=== PATIENT | female | born 1940 | race Caucasian/White ===

== ENCOUNTER 2017-09-26 15:46 | Outpatient (CLI) | payer OTHER ==
[~2017-09-26 15:46] MED LIST: CALCICARB650 MG PO; HYZAAR 100-121 UDTAB; HYZAAR 100-121 UDTAB PO; LOSARTAN-HCTZ1 EAC2 PO; PROTONIX40 MG PO; REMERON15 MG PO; SYNTHROID125 MCG PO; ZANTAC300 MG PO; ZOFRAN4 MG PO
== END 2017-09-26 19:00 | disposition home or self-care (01) ==
LOC: RAD 15:46
DX: S52.502A Unspecified fracture of the lower end of left radius, initial encounter for closed fracture (principal)

== ENCOUNTER 2017-10-29 14:46 | Outpatient (CLI) | payer OTHER | END 2017-10-29 14:55 | disposition home or self-care (01) | LOC: MRI 14:46 | DX: R42 Dizziness and giddiness (principal); R41.2 Retrograde amnesia | CPT/HCPCS: 70551 ==

== ENCOUNTER 2017-10-29 15:45 | Outpatient (CLI) | payer OTHER | END 2017-10-29 15:54 | disposition home or self-care (01) | LOC: RAD 15:45 | DX: M15.0 Primary generalized (osteo)arthritis (principal) ==

== ENCOUNTER 2017-12-01 10:48 | Outpatient (CLI) | payer OTHER | END 2017-12-01 15:26 | disposition home or self-care (01) | LOC: RAD 10:48 | DX: S52.502D Unspecified fracture of the lower end of left radius, subsequent encounter for closed fracture with routine healing (principal) ==

== ENCOUNTER 2018-03-26 06:13 | Day surgery (SDC) | payer OTHER | END 2018-03-26 10:10 | disposition home or self-care (01) | LOC: AMB-ENDOS 06:13 | DX: K29.50 Unspecified chronic gastritis without bleeding (principal); K31.89 Other diseases of stomach and duodenum; K20.0 Eosinophilic esophagitis; K21.9 Gastro-esophageal reflux disease without esophagitis; K29.00 Acute gastritis without bleeding ==

== ENCOUNTER 2018-03-26 10:43 | Outpatient (CLI) | payer OTHER | END 2018-03-26 16:12 | disposition home or self-care (01) | LOC: TOM 10:43 | DX: K56.600 Partial intestinal obstruction, unspecified as to cause (principal); Z12.11 Encounter for screening for malignant neoplasm of colon ==

== ENCOUNTER 2019-05-04 04:50 | Emergency (ER) | payer OTHER ==
[~2019-05-04] VITALS: Ht 152.4 cm; Wt 68.0 kg
[2019-05-04] MEDS ORDERED: FORTAMET500 MG (05:17)
[2019-05-04] MEDS ORDERED: SYNTHROID137 MCG (05:17)
[2019-05-04] MEDS ORDERED: [UNRECOGNIZED DRUG - OTHER] (05:18)
[2019-05-04] MEDS ORDERED: ELIQUIS5 MG (05:24)
== END 2019-05-04 13:14 | disposition home or self-care (01) ==
LOC: ER 04:50
DX: M54.5 Low back pain (principal); M79.604 Pain in right leg

== ENCOUNTER 2023-08-23 21:49 | Emergency (ER) | payer OTHER ==
[~2023-08-23] VITALS: Ht 152.4 cm; Wt 62.6 kg
[~2023-08-23 21:49] MED LIST changes: +ELIQUIS5 MG; +FORTAMET500 MG; +SYNTHROID137 MCG; +[UNRECOGNIZED DRUG - OTHER]
[2023-08-23] MEDS ORDERED: SYNTHROID112 MCG (22:10)
[2023-08-23] MEDS ORDERED: ROSUVASTATIN CA10 MG (22:11)
[2023-08-23] MEDS ORDERED: PREVALITE PACKET4 GM (22:11)
[2023-08-23] MEDS ORDERED: OMEPRAZOLE20 M1 (22:11)
[2023-08-23] MEDS ORDERED: FOLIC ACID20 MG (22:11)
== END 2023-08-24 01:50 | disposition home or self-care (01) ==
LOC: ER 21:49
DX: L30.8 Other specified dermatitis (principal); Z88.8 Allergy status to other drugs, medicaments and biological substances; E11.9 Type 2 diabetes mellitus without complications; Z79.84 Long term (current) use of oral hypoglycemic drugs; I10 Essential (primary) hypertension

== ENCOUNTER 2023-08-29 07:14 | Outpatient (CLI) | payer OTHER ==
[~2023-08-29 07:14] MED LIST changes: +FOLIC ACID20 MG; +OMEPRAZOLE20 M1; +PREVALITE PACKET4 GM; +ROSUVASTATIN CA10 MG; +SYNTHROID112 MCG
== END 2023-08-29 07:16 | disposition home or self-care (01) ==
LOC: NUCLEAR 07:14
DX: I20.0 Unstable angina (principal)
CPT/HCPCS: 78452; 93017; A9500; J0153

== ENCOUNTER 2023-10-15 12:54 | Outpatient (CLI) | payer OTHER | END 2023-10-15 12:55 | disposition home or self-care (01) | LOC: RAD 12:54 | PROVIDERS: ATTEND Physical Medicine & Rehabilitation | DX: M25.562 Pain in left knee (principal); M54.2 Cervicalgia; M54.50 Low back pain, unspecified; M54.6 Pain in thoracic spine ==

== ENCOUNTER 2024-03-23 07:36 | Outpatient (CLI) | payer OTHER | END 2024-03-23 07:48 | disposition home or self-care (01) | LOC: TOM 07:36 | PROVIDERS: ATTEND Otolaryngology | DX: R10.12 Left upper quadrant pain (principal) | CPT/HCPCS: 74178; Q9965 ==

== ENCOUNTER 2024-05-01 20:25 | Emergency (ER) | payer OTHER ==
[~2024-05-01] VITALS: Ht 162.6 cm; Wt 63.5 kg
[2024-05-01] MEDS ORDERED: 0.9 % SODIUM CHLORIDE 1,000 ML IV ONE (21:15)
[2024-05-01 21:52] LABS: HEMATOCRIT 35.1 % (36.0-45.00); HEMOGLOBIN 11.6 g/dL (12.0-15.00); MEAN CELL VOLUME 84.5 fL (80.00-100.00); MEAN CORPUSCULAR HGB CONC 33.1 g/dl (32.0-36.0); PLATELET COUNT 306 K/uL (150-450); RED BLOOD COUNT 4.15 M/uL (4.00-6.00); RED CELL DISTRIBUTION WIDTH 15.2 % (11.5-14.5)
[2024-05-01 22:06] LABS: INR 1.11; PARTIAL THROMBOPLASTIN TIME 29.8 SECONDS (22.0-34.0); PROTHROMBIN TIME 11.6 SECONDS (9.0-11.5)
[2024-05-01 22:19] LABS: ALBUMIN 3.2 gm/dL (3.4-5.0); BILIRUBIN TOTAL 0.29 mg/dL (0.3-1.2); CALCIUM 8.6 mg/dL (8.5-10.1); CREATININE SERUM 1.45 mg/dL (0.55-1.02); GFR 34.57; GLOBULINA 3.3 G/DL (2.4-3.5); POTASSIUM 3.49 mEq/L (3.5-5.1); TOTAL PROTEIN 6.5 gm/dL (6.4-8.2); TSH 1.75 uIU/mL (0.358-3.74)
[2024-05-01 22:28] LABS: URINE APPEARANCE Clear; URINE BILIRRUBIN Negative (NEGATIVE); URINE BLOOD Negative; URINE COLOR Yellow; URINE GLUCOSE Negative (NEGATIVE); URINE KETONE Trace (NEGATIVE); URINE LEUKOCYTE Trace; URINE NITRATE Negative; URINE PROTEIN Negative (NEGATIVE); URINE UROBILINOGEN 0.2 E.U./dl
[2024-05-01 22:32] LABS: URINE BACTERIA 49.1 uL (0.0-1933); URINE CAST 7.17 uL (0.0-1.40); URINE EPITHELIAL CELLS 30.7 uL (0.0-38.8); URINE RBC 7.1 uL (0.0-20.8); URINE WBC 24.8 uL (0.0-23.2)
== END 2024-05-02 01:06 | disposition home or self-care (01) ==
LOC: ER 20:25
PROVIDERS: General Practice
DX: I95.9 Hypotension, unspecified (principal); R53.1 Weakness; Z88.2 Allergy status to sulfonamides; I48.91 Unspecified atrial fibrillation; I10 Essential (primary) hypertension; G47.33 Obstructive sleep apnea (adult) (pediatric); E03.8 Other specified hypothyroidism; K58.8 Other irritable bowel syndrome; Z91.040 Latex allergy status; E11.9 Type 2 diabetes mellitus without complications; Z79.84 Long term (current) use of oral hypoglycemic drugs; E78.00 Pure hypercholesterolemia, unspecified
CPT/HCPCS: 36415; 70450; 71045; 93005; 96365; 96366; 99284; J7030

== ENCOUNTER → 2024-08-09 | Outpatient (CLI) | payer OTHER | END | disposition home or self-care (01) | LOC: RAD 13:52 | DX: M99.01 Segmental and somatic dysfunction of cervical region (principal); M54.2 Cervicalgia; M99.02 Segmental and somatic dysfunction of thoracic region; M54.6 Pain in thoracic spine; M99.03 Segmental and somatic dysfunction of lumbar region; M54.59 Other low back pain ==

== ENCOUNTER 2024-10-10 02:10 | Inpatient (IN) | payer OTHER ==
[~2024-10-10] VITALS: Ht 152.4 cm; Wt 142.0 kg
[2024-10-10] MEDS ORDERED: FAMOTIDINE/PF 20 MG in 0.9 % SODIUM CHLORIDE 8 ML IV PUSH STA (03:26)
[2024-10-10] MEDS ORDERED: 0.9 % SODIUM CHLORIDE 1,000 ML IV SCH (03:30)
[2024-10-10] MEDS ORDERED: KETOROLAC TROMETHAMINE 30 MG VIAL IV ONE (03:30)
[2024-10-10] MEDS ORDERED: ONDANSETRON HCL 2 MG/ML VIAL IV ONE (03:30)
[2024-10-10] MEDS ORDERED: ONDANSETRON HCL 2 MG/ML VIAL ONE ×2 (03:49→08:18)
[2024-10-10] MEDS ORDERED: FAMOTIDINE/PF 20 MG/2 ML VIAL ONE ×2 (03:49→08:18)
[2024-10-10] MEDS ORDERED: KETOROLAC TROMETHAMINE 30 MG VIAL ONE ×2 (03:50→08:17)
[2024-10-10 04:51] LABS: ALBUMIN 3.1 gm/dL (3.4-5.0); BILIRUBIN TOTAL 0.38 mg/dL (0.3-1.2); CALCIUM 8.5 mg/dL (8.5-10.1); CREATININE SERUM 0.99 mg/dL (0.55-1.02); GFR 53.57; GLOBULINA 3.4 G/DL (2.4-3.5); POTASSIUM 4.16 mEq/L (3.5-5.1); TOTAL PROTEIN 6.5 gm/dL (6.4-8.2)
[2024-10-10 05:41] LABS: HEMATOCRIT 36.3 % (36.0-45.00); MEAN CELL VOLUME 87.2 fL (80.00-100.00); MEAN CORPUSCULAR HEMOGLOBIN 28.8 pg (27.00-32.0); PLATELET COUNT 335 K/uL (150-450); RED BLOOD COUNT 4.17 M/uL (4.00-6.00); RED CELL DISTRIBUTION WIDTH 14.4 % (11.5-14.5)
[2024-10-10] MEDS ORDERED: LIDOCAINE HCL VISCOUS 20MG/ML BLIST 15ML MM ONE (09:04)
[2024-10-10] MEDS ORDERED: PANTOPRAZOLE SODIUM 40 MG/VIAL VIAL IV SCH (15:33)
[2024-10-10] MEDS ORDERED: ONDANSETRON HCL 4 MG in DEXTROSE 5 % IN WATER 50 ML IV PRN (16:00)
[2024-10-10] MEDS ORDERED: ENOXAPARIN SODIUM 80 MG/0.8 ML SYRINGE SUBCUTANEO ONE (16:25)
[2024-10-10] MEDS ORDERED: ENOXAPARIN SODIUM 60 MG/0.6 ML SYRINGE SUBCUTANEO SCH (17:00)
[2024-10-10] MEDS ORDERED: ENOXAPARIN SODIUM 80 MG/0.8 ML SYRINGE SUBCUTANEO SCH (17:00)
[2024-10-10] MEDS ORDERED: ENALAPRILAT DIHYDRATE 1.25 MG/ML VIAL IV SCH (18:00)
[2024-10-10] MEDS ORDERED: DEXTROSE 50 % IN WATER 0.5 G/ML DISP.SYRIN IV PRN (19:15)
[2024-10-10] MEDS ORDERED: INSULIN LISPRO 1,000 UNIT/10 ML UNITS SUBCUTANEO PRN (19:15)
[2024-10-10] MEDS ORDERED: METOCLOPRAMIDE HCL 5 MG/ML VIAL ONE (20:06)
[2024-10-10 20:44] VITALS: BP 134/82
[2024-10-10] MEDS ORDERED: METOCLOPRAMIDE HCL 5 MG/ML VIAL IV SCH (21:00)
[2024-10-10 21:02] LABS: INR 1.09; PARTIAL THROMBOPLASTIN TIME 35.9 SECONDS (22.0-34.0); PROTHROMBIN TIME 11.8 SECONDS (9.0-11.5)
[2024-10-10 21:40] LABS: PH,URINE 5.5 (5.0-8.0); URINE APPEARANCE Clear; URINE BILIRRUBIN Negative (NEGATIVE); URINE BLOOD Small; URINE COLOR Yellow; URINE GLUCOSE Negative (NEGATIVE); URINE KETONE Trace (NEGATIVE); URINE LEUKOCYTE Small; URINE NITRATE Positive; URINE PROTEIN Negative (NEGATIVE); URINE UROBILINOGEN 0.2 E.U./dl
[2024-10-10 21:43] LABS: URINE EPITHELIAL CELLS 12.6 uL (0.0-38.8); URINE RBC 10.9 uL (0.0-20.8); URINE WBC 68.1 uL (0.0-23.2)
[2024-10-10 22:00] LABS: URINE BACTERIA > 9821.5 uL (0.0-1933); URINE CAST 0.29 uL (0.0-1.40)
[2024-10-11 02:10] VITALS: BP 134/74
[2024-10-11] MEDS ORDERED: LEVOTHYROXINE SODIUM 112 MCG TABLET PO SCH (06:00)
[2024-10-11 07:35] VITALS: BP 132/82; O2SAT 97
[2024-10-11] MEDS ORDERED: METOPROLOL SUCCINATE 50 MG TAB.SR.24H PO SCH (09:00)
[2024-10-11 16:00] VITALS: BP 147/73; O2SAT 95
[2024-10-12 00:49] VITALS: BP 143/60; O2SAT 99
[2024-10-12 08:00] VITALS: BP 164/74; O2SAT 98
== END 2024-10-12 16:52 | disposition home or self-care (01) | DRG 390 ==
LOC: ER 02:10 → SURH 19:53
PROVIDERS: General Practice; ADMIT Internal Medicine; ATTEND Internal Medicine
PROC: BW21ZZZ Computerized Tomography (CT Scan) of Abdomen and Pelvis (ICD-10-PCS; principal; 2024-10-10)
PROC: 0DH68UZ Insertion of Feeding Device into Stomach, Via Natural or Artificial Opening Endoscopic (ICD-10-PCS; 2024-10-10)
DX: K56.690 Other partial intestinal obstruction (principal); I48.91 Unspecified atrial fibrillation; K20.80 Other esophagitis without bleeding; R53.1 Weakness

== ENCOUNTER 2024-12-26 02:26 | Emergency (ER) | payer OTHER ==
[~2024-12-26] VITALS: Ht 152.4 cm; Wt 63.5 kg
[2024-12-26] MEDS ORDERED: SYMBICORT 16010.2 GM IH (02:42)
[2024-12-26] MEDS ORDERED: METOPROLOL SUCC50 MG PO (02:42)
[2024-12-26] MEDS ORDERED: LOSARTAN POTAS100 MG PO (02:42)
[2024-12-26] MEDS ORDERED: MAGNESIUM SULFATE IN WATER 4 GM/100 ML PIGGYBACK IV STA (04:03)
[2024-12-26] MEDS ORDERED: HYDROCODONE/CHLORPHEN P-STIREX 5 ML ML PO STA (04:04)
[2024-12-26] MEDS ORDERED: MAGNESIUM SULFATE 50% 1,000 MG/2 ML VIAL ONE (04:25)
[2024-12-26 04:27] LABS: ABG PO2 89.4 mmHg (80-100); ABG pCO2 30.2 mmHg (35-45); BASE EXCESS -0.3 mmol/l; SaO2 97.5 %
[2024-12-26 04:31] LABS: HEMATOCRIT 38.6 % (36.0-45.00); HEMOGLOBIN 12.8 g/dL (12.0-15.00); MEAN CELL VOLUME 84.3 fL (80.00-100.00); MEAN CORPUSCULAR HEMOGLOBIN 28.1 pg (27.00-32.0); MEAN CORPUSCULAR HGB CONC 33.3 g/dl (32.0-36.0); PLATELET COUNT 329 K/uL (150-450); RED BLOOD COUNT 4.57 M/uL (4.00-6.00); RED CELL DISTRIBUTION WIDTH 15.1 % (11.5-14.5)
[2024-12-26 04:44] LABS: allen test SATISFACTORY; o2 21 %; puncture site RADIAL RIGHT
[2024-12-26 04:54] LABS: CALCIUM 9.3 mg/dL (8.5-10.1); CREATININE SERUM 0.78 mg/dL (0.55-1.02); GFR 70.53; POTASSIUM 3.69 mEq/L (3.5-5.1)
[2024-12-26] MEDS ORDERED: IPRATROPIUM/ALBUTEROL SULFATE 3 ML AMPUL.NEB IH SCH (05:00)
== END 2024-12-26 05:56 | disposition home or self-care (01) ==
LOC: ER 02:27
DX: J06.9 Acute upper respiratory infection, unspecified (principal); J45.901 Unspecified asthma with (acute) exacerbation; Z20.822 Contact with and (suspected) exposure to COVID-19; I10 Essential (primary) hypertension; Z88.8 Allergy status to other drugs, medicaments and biological substances
CPT/HCPCS: 36415; 71045; 82803; 94640; 96365; 99284; J3475

== ENCOUNTER 2025-02-03 13:14 | Outpatient (CLI) | payer OTHER ==
[~2025-02-03 13:14] MED LIST changes: +LOSARTAN POTAS100 MG PO; +METOPROLOL SUCC50 MG PO; +SYMBICORT 16010.2 GM IH
== END 2025-02-03 13:16 | disposition home or self-care (01) ==
LOC: SONOGRAMA 13:14
PROVIDERS: ATTEND Internal Medicine Cardiovascular Disease
DX: M19.90 Unspecified osteoarthritis, unspecified site (principal)

== ENCOUNTER → 2025-03-30 07:30 | Outpatient (CLI) | payer OTHER | END | disposition home or self-care (01) | LOC: NUCLEAR 07:30 | PROVIDERS: ATTEND Internal Medicine Cardiovascular Disease | DX: I82.409 Acute embolism and thrombosis of unspecified deep veins of unspecified lower extremity (principal); I87.2 Venous insufficiency (chronic) (peripheral) ==

== ENCOUNTER 2025-06-28 11:19 | Inpatient (IN) | payer OTHER ==
[~2025-06-28] VITALS: Ht 152.4 cm; Wt 63.5 kg
[2025-06-28] MEDS ORDERED: LEVOTHYROXINE112 MCG (11:27)
[2025-06-28] MEDS ORDERED: PREDNISOLO15 MG/5 M1 (11:27)
--- NOTE | 2025-06-28 11:28 | NUR ---
SE RECIBE PACIENTE ALERTA Y ORIENTADA X3 QUIEN REFIERE DOLOR ABDOMINAL. SE MIDEN S/V Y SE UBICA EN BILL CON BARANDAS ELEVADAS Y NIVEL MAS BAJO DE LA BILL
[2025-06-28] MEDS ORDERED: 0.9 % SODIUM CHLORIDE 1,000 ML IV STA (13:11)
[2025-06-28] MEDS ORDERED: ONDANSETRON HCL 2 MG/ML VIAL IV ONE (13:15)
[2025-06-28] MEDS ORDERED: FAMOTIDINE/PF 20 MG in 0.9 % SODIUM CHLORIDE 100 ML IV ONE (13:15)
[2025-06-28] MEDS ORDERED: METRONIDAZOLE/SODIUM CHLORIDE 500 MG/100 ML PIGGYBACK IV ONE ×2 (13:15→14:12)
[2025-06-28] MEDS ORDERED: MORPHINE SULFATE 2 MG/ML SYRINGE IV ONE (13:15)
[2025-06-28] MEDS ORDERED: CIPROFLOXACIN IN 5 % DEXTROSE 200 ML IV ONE (13:15)
[2025-06-28] MEDS ORDERED: ONDANSETRON HCL 2 MG/ML VIAL ONE (14:12)
[2025-06-28] MEDS ORDERED: CIPROFLOXACIN IN 5 % DEXTROSE 400 MG/200 ML PIGGYBAG IV ONE (14:12)
[2025-06-28] MEDS ORDERED: FAMOTIDINE/PF 20 MG/2 ML VIAL ONE (14:13)
[2025-06-28] MEDS ORDERED: BARIUM SULFATE 450 ML ORAL.SUSP PO ONE (14:13)
--- NOTE | 2025-06-28 14:33 | NUR ---
SE ORIENTA PTE SOBRE TX MEDICO Y LA MISMA REFIERE ENTENDER Y ACEPTAR. SE CANALIZA Y SE COLECTAN MUESTRAS DE LAB, SE ADMINISTRAN MEDS MONICA ORDEN MEDICA. SE HACE ENTREGA DE ENVASE PARA UA Y SE HACE ENTREGA DE CONTRASTES PARA CT PO.
[2025-06-28 14:41] LABS: ERYTHROCYTE SEDIMENTATION RATE 46 mm/hr (0-30)
[2025-06-28 14:46] LABS: ALT/SGPT 18.0 U/L (12-78); AST/SGOT 14.0 U/L (15-37); BILIRUBIN TOTAL 0.28 mg/dL (0.3-1.2); BILIRUBIN,CONJUGATED 0.11 mg/dL (0.0-0.2); BUN CREA RATIO 27.0 (7.0-25.0); CREATININE SERUM 1.08 mg/dL (0.55-1.02); GFR 48.45; GLUCOSE FASTING 117.0 mg/dL (65-100); OSMOLALITY SERUM 286.0 MOSM/KG (275-295)
[2025-06-28 14:50] LABS: URINE APPEARANCE Clear; URINE BILIRRUBIN Negative (NEGATIVE); URINE BLOOD Negative; URINE COLOR Yellow; URINE GLUCOSE Negative (NEGATIVE); URINE KETONE Negative (NEGATIVE); URINE LEUKOCYTE Negative; URINE NITRATE Negative; URINE PROTEIN Negative (NEGATIVE); URINE UROBILINOGEN 0.2 E.U./dl
[2025-06-28 14:54] LABS: URINE BACTERIA 8.3 uL (0.0-1933); URINE EPITHELIAL CELLS 7.6 uL (0.0-38.8); URINE RBC 5.5 uL (0.0-20.8); URINE WBC 2.3 uL (0.0-23.2)
[2025-06-28 15:01] LABS: URINE CAST 1.02 uL (0.0-1.40)
[2025-06-28] MEDS ORDERED: DIPHENHYDRAMINE HCL 50 MG/ML VIAL 1ML ONE (15:01)
[2025-06-28] MEDS ORDERED: METHYLPREDNISOLONE SOD SUCC 125 MG VIAL ONE (15:01)
[2025-06-28 15:07] LABS: INR 1.08
--- NOTE | 2025-06-28 15:10 | NUR ---
AL MOMENTO DE ADMINISTRAR FLAGYL PACIENTE PRESENTA REACCION ADVERSA, SE LUIS SV Y SE NOTIFICA AKHIL.CHEEMA. SE COLOCA BENADRYL 50 MG IV Y SOLUMEDROL 125MG IV, PTE ESTABLE , SE DOCUMENTAN VITALES.
[2025-06-28] MEDS ORDERED: DIPHENHYDRAMINE HCL 50 MG/ML VIAL 1ML IV ONE (15:15)
[2025-06-28] MEDS ORDERED: METHYLPREDNISOLONE SOD SUCC 125 MG VIAL IV ONE (15:15)
[2025-06-28 16:08] LABS: BASO % 0.2 % (0.1-1.2); EOS # 0.42 (0.04-0.54); EOS % 3.3 % (0.7-7.0); LYMPH # 2.19 (1.18-3.74); LYMPH % 17.1 % (19.3-53.1); MEAN PLATELET VOLUME 9.80 fl (9.4-12.4); MONO # 1.02 (0.24-0.82); MONO % 8.0 % (4.7-12.5); NEUT # 9.00 (1.56-6.13); NEUT % 70.1 % (34.0-71.1); RED CELL DISTRIBUTION WIDTH 15.7 % (11.6-14.4)
[2025-06-28] MEDS ORDERED: CIPROFLOXACIN IN 5 % DEXTROSE 200 ML IV SCH (22:10)
[2025-06-28] MEDS ORDERED: PANTOPRAZOLE SODIUM 40 MG in 0.9 % SODIUM CHLORIDE 8 ML IV PUSH SCH (22:12)
[2025-06-28] MEDS ORDERED: LOSARTAN/HYDROCHLOROTHIAZIDE 1 TAB TABLET PO SCH (22:13)
[2025-06-28] MEDS ORDERED: 0.9 % SODIUM CHLORIDE 1,000 ML IV SCH (22:15)
[2025-06-28] MEDS ORDERED: MORPHINE SULFATE 2 MG/ML SYRINGE IV PRN (22:15)
[2025-06-28] MEDS ORDERED: ENOXAPARIN SODIUM 40 MG/0.4 ML SYRINGE SUBCUTANEO SCH (22:17)
[2025-06-28] MEDS ORDERED: INSULIN LISPRO 1,000 UNIT/10 ML UNITS SUBCUTANEO PRN (22:30)
[2025-06-28] MEDS ORDERED: DEXTROSE 50 % IN WATER 0.5 G/ML DISP.SYRIN IV PRN (22:30)
[2025-06-28] MEDS ORDERED: METOPROLOL TARTRATE 100 MG TABLET PO SCH (22:37)
[2025-06-28] MEDS ORDERED: ATORVASTATIN CALCIUM 20 MG TABLET PO SCH (22:38)
[2025-06-29 02:02] LABS: ALT/SGPT 17.0 U/L (12-78); AST/SGOT 13.0 U/L (15-37); BILIRUBIN TOTAL 0.33 mg/dL (0.3-1.2); BUN CREA RATIO 26.0 (7.0-25.0); CREATININE SERUM 0.92 mg/dL (0.55-1.02); GFR 58.3; GLOBULINA 3.7 G/DL (2.4-3.5); GLUCOSE FASTING 154.0 mg/dL (65-100); OSMOLALITY SERUM 285.0 MOSM/KG (275-295)
[2025-06-29 02:40] VITALS: BP 115/69; O2SAT 99
[2025-06-29] MEDS ORDERED: LEVOTHYROXINE SODIUM 112 MCG TABLET PO SCH (06:00)
[2025-06-29 07:40] VITALS: BP 133/74
[2025-06-29] MEDS ORDERED: INSULIN LISPRO 1,000 UNIT/10 ML UNITS SUBCUTANEO PRN (14:15)
[2025-06-29] MEDS ORDERED: ENALAPRILAT DIHYDRATE 1.25 MG/ML VIAL IV PRN (14:15)
[2025-06-29] MEDS ORDERED: DEXTROSE 50 % IN WATER 0.5 G/ML DISP.SYRIN IV PRN (14:15)
[2025-06-29 16:30] VITALS: BP 118/77; O2SAT 99
[2025-06-29] MEDS ORDERED: MEROPENEM 500 MG/VIAL VIAL IV SCH (17:00)
[2025-06-29] MEDS ORDERED: LACTOBACILLUS ACIDOPHILUS 1 CAP CAP PO SCH (17:00)
[2025-06-29] MEDS ORDERED: DEXTROSE 5 %-0.45 % SOD CHLORD 1,000 ML IV SCH (17:30)
[2025-06-29] MEDS ORDERED: FAMOTIDINE/PF 20 MG/2 ML VIAL IV SCH (21:00)
[2025-06-29 23:35] VITALS: BP 112/68; O2SAT 98
[2025-06-30] MEDS ORDERED: MELATONIN 5 MG TABLET PO SCH (00:45)
[2025-06-30] MEDS ORDERED: LEVOTHYROXINE SODIUM 125 MCG TABLET PO SCH (06:00)
[2025-06-30 07:28] LABS: BASO % 0.3 % (0.1-1.2); EOS # 0.12 (0.04-0.54); EOS % 0.9 % (0.7-7.0); LYMPH # 2.88 (1.18-3.74); LYMPH % 21.2 % (19.3-53.1); MEAN PLATELET VOLUME 9.60 fl (9.4-12.4); MONO # 1.06 (0.24-0.82); MONO % 7.8 % (4.7-12.5); NEUT # 9.25 (1.56-6.13); NEUT % 68.3 % (34.0-71.1); RED CELL DISTRIBUTION WIDTH 15.3 % (11.6-14.4)
[2025-06-30 08:00] VITALS: BP 114/69; O2SAT 99
[2025-06-30 08:25] LABS: ALT/SGPT 19.0 U/L (12-78); AST/SGOT 16.0 U/L (15-37); BILIRUBIN TOTAL 0.29 mg/dL (0.3-1.2); BUN CREA RATIO 24.0 (7.0-25.0); CREATININE SERUM 0.89 mg/dL (0.55-1.02); GFR 60.57; GLOBULINA 2.8 G/DL (2.4-3.5); GLUCOSE FASTING 114.0 mg/dL (65-100); OSMOLALITY SERUM 291.0 MOSM/KG (275-295); T4 TOTAL 9.88 UG/DL (4.8-13.9)
[2025-06-30 08:30] LABS: TSH 0.336 uIU/mL (0.358-3.74)
[2025-06-30] MEDS ORDERED: LOSARTAN POTASSIUM 100 MG TABLET PO SCH (09:00)
[2025-06-30] MEDS ORDERED: METOPROLOL SUCCINATE 100 MG TAB.SR.24H PO SCH (09:00)
[2025-06-30] MEDS ORDERED: Cyanocobalamin/Mecobalamin 1 TAB.SL SL SCH (10:36)
[2025-06-30] MEDS ORDERED: SOD FERRIC GLUC COMPLX/SUCROSE 62.5 MG in 0.9 % SODIUM CHLORIDE 50 ML IV SCH (10:36)
[2025-06-30 12:12] LABS: ob POSITIVE (NEGATIVE)
[2025-06-30] MEDS ORDERED: MAGNESIUM SULFATE IN WATER 50 ML IV NR (15:30)
[2025-06-30] MEDS ORDERED: ROSUVASTATIN CALCIUM 10 MG TABLET PO SCH (17:00)
[2025-06-30 18:18] VITALS: BP 138/80; O2SAT 98
[2025-06-30] MEDS ORDERED: ENOXAPARIN SODIUM 60 MG/0.6 ML SYRINGE SUBCUTANEO SCH (21:00)
[2025-06-30 21:02] LABS: URINE APPEARANCE Clear; URINE BILIRRUBIN Negative (NEGATIVE); URINE BLOOD Negative; URINE COLOR Yellow; URINE GLUCOSE Negative (NEGATIVE); URINE KETONE Negative (NEGATIVE); URINE LEUKOCYTE Negative; URINE NITRATE Negative; URINE PROTEIN Negative (NEGATIVE); URINE UROBILINOGEN 0.2 E.U./dl
[2025-06-30 21:07] LABS: URINE EPITHELIAL CELLS 1.8 uL (0.0-38.8); URINE WBC 2.6 uL (0.0-23.2)
[2025-06-30 21:15] LABS: URINE BACTERIA 2.3 uL (0.0-1933); URINE CAST 0.73 uL (0.0-1.40); URINE RBC 0.4 uL (0.0-20.8)
[2025-07-01] MEDS ORDERED: MEROPENEM 500 MG/VIAL VIAL IV SCH
[2025-07-01 02:48] VITALS: BP 105/67; O2SAT 97
[2025-07-01] MEDS ORDERED: LEVOTHYROXINE SODIUM 112 MCG TABLET PO SCH (06:00)
[2025-07-01 08:40] VITALS: BP 143/83; O2SAT 98
[2025-07-01 15:51] VITALS: BP 135/72; O2SAT 100
[2025-07-02 00:58] VITALS: BP 110/72; O2SAT 99
[2025-07-02] MEDS ORDERED: PANTOPRAZOLE SODIUM 40 MG/VIAL VIAL ONE (05:15)
[2025-07-02] MEDS ORDERED: LEVOTHYROXINE SODIUM 125 MCG TABLET PO SCH (06:00)
[2025-07-02] MEDS ORDERED: PANTOPRAZOLE SODIUM 40 MG in 0.9 % SODIUM CHLORIDE 8 ML IV PUSH SCH (06:00)
[2025-07-02 07:37] LABS: BASO % 0.6 % (0.1-1.2); EOS # 0.34 (0.04-0.54); EOS % 4.3 % (0.7-7.0); LYMPH # 3.08 (1.18-3.74); LYMPH % 39.2 % (19.3-53.1); MEAN PLATELET VOLUME 9.40 fl (9.4-12.4); MONO # 0.72 (0.24-0.82); MONO % 9.2 % (4.7-12.5); NEUT # 3.46 (1.56-6.13); NEUT % 44.2 % (34.0-71.1); RED CELL DISTRIBUTION WIDTH 15.3 % (11.6-14.4)
[2025-07-02 07:46] LABS: ERYTHROCYTE SEDIMENTATION RATE 9 mm/hr (0-30)
[2025-07-02 08:00] VITALS: BP 129/79; O2SAT 100
[2025-07-02 08:13] LABS: ALT/SGPT 17.0 U/L (12-78); AST/SGOT 16.0 U/L (15-37); BILIRUBIN TOTAL 0.22 mg/dL (0.3-1.2); BUN CREA RATIO 7.0 (7.0-25.0); CREATININE SERUM 0.81 mg/dL (0.55-1.02); GFR 67.53; GLOBULINA 2.8 G/DL (2.4-3.5); GLUCOSE FASTING 91.0 mg/dL (65-100); OSMOLALITY SERUM 288.0 MOSM/KG (275-295)
[2025-07-02] MEDS ORDERED: MAGNESIUM SULFATE IN WATER 50 ML IV NR (12:00)
[2025-07-02] MEDS ORDERED: POTASSIUM PHOS,M-BASIC-D-BASIC 15 MM in 0.9 % SODIUM CHLORIDE 250 ML IV ONE (13:00)
[2025-07-02 16:00] VITALS: BP 152/73; O2SAT 98
[2025-07-03 00:18] VITALS: BP 141/73; O2SAT 98
[2025-07-03 07:53] VITALS: BP 126/56; O2SAT 95
[2025-07-03 16:59] VITALS: BP 166/80; O2SAT 99
[2025-07-03 19:15] VITALS: O2SAT 84
[2025-07-04 00:50] VITALS: BP 136/84; O2SAT 99
[2025-07-04 07:12] LABS: BASO % 0.6 % (0.1-1.2); EOS # 0.47 (0.04-0.54); EOS % 5.0 % (0.7-7.0); LYMPH # 2.95 (1.18-3.74); LYMPH % 31.1 % (19.3-53.1); MEAN PLATELET VOLUME 9.50 fl (9.4-12.4); MONO # 0.77 (0.24-0.82); MONO % 8.1 % (4.7-12.5); NEUT # 4.89 (1.56-6.13); NEUT % 51.6 % (34.0-71.1); RED CELL DISTRIBUTION WIDTH 15.6 % (11.6-14.4)
[2025-07-04 07:38] LABS: BUN CREA RATIO 8.0 (7.0-25.0); CREATININE SERUM 0.86 mg/dL (0.55-1.02); GFR 63.02; GLUCOSE FASTING 89.0 mg/dL (65-100); OSMOLALITY SERUM 286.0 MOSM/KG (275-295)
[2025-07-04 08:00] VITALS: BP 137/75; O2SAT 97
[2025-07-04] MEDS ORDERED: DIATRIZOATE MEGLUMINE, SODIUM 30 ML BOTTLE PO NR (08:00)
[2025-07-04] MEDS ORDERED: POTASSIUM PHOS,M-BASIC-D-BASIC 18 MM in 0.9 % SODIUM CHLORIDE 250 ML IV NR (13:00)
[2025-07-04 16:00] VITALS: BP 149/71; O2SAT 100
[2025-07-04] MEDS ORDERED: ONDANSETRON HCL 2 MG/ML VIAL IV STA (22:22)
[2025-07-04] MEDS ORDERED: FAMOTIDINE/PF 20 MG/2 ML VIAL IV STA (22:24)
[2025-07-05 06:26] LABS: BASO % 0.9 % (0.1-1.2); EOS # 0.49 (0.04-0.54); EOS % 5.6 % (0.7-7.0); LYMPH # 2.83 (1.18-3.74); LYMPH % 32.1 % (19.3-53.1); MEAN PLATELET VOLUME 9.50 fl (9.4-12.4); MONO # 0.74 (0.24-0.82); MONO % 8.4 % (4.7-12.5); NEUT # 4.32 (1.56-6.13); NEUT % 48.9 % (34.0-71.1); RED CELL DISTRIBUTION WIDTH 15.8 % (11.6-14.4)
[2025-07-05 07:20] LABS: EOSINOPHIL MAN 2.0 %; LYMPHOCYTE MAN 45.0 %; MONOCYTE MAN 11.0 %; NEUTROPHILS MAN 40.0 %
[2025-07-05] MEDS ORDERED: ONDANSETRON HCL 2 MG/ML VIAL IV SCH (09:00)
[2025-07-05] MEDS ORDERED: ZINC OXIDE TOP SCH (09:00)
[2025-07-05] MEDS ORDERED: FAMOTIDINE/PF 20 MG/2 ML VIAL IV SCH (09:00)
[2025-07-05] MEDS ORDERED: NYSTATIN TOP SCH (09:00)
[2025-07-05 09:47] VITALS: BP 143/80; O2SAT 98
[2025-07-05] MEDS ORDERED: SUCRALFATE 1 G TABLET PO NR (11:00)
[2025-07-05] MEDS ORDERED: KETOROLAC TROMETHAMINE 30 MG VIAL IV SCH (13:00)
[2025-07-05] MEDS ORDERED: ZINC OXIDE 30 GM,NYSTATIN 30 GM TOP SCH (13:00)
[2025-07-05 16:00] VITALS: BP 114/95; O2SAT 98
[2025-07-05] MEDS ORDERED: SUCRALFATE 1 G TABLET PO SCH (17:00)
[2025-07-05] MEDS ORDERED: APIXABAN 5 MG TABLET PO SCH (21:00)
[2025-07-06 00:28] VITALS: BP 137/82; O2SAT 98
[2025-07-06 07:45] VITALS: BP 134/64; O2SAT 100
[2025-07-06] MEDS ORDERED: ABANEU-SL TABL1 EACH SL (12:12)
[2025-07-06] MEDS ORDERED: FUSION PLUS CA1 EACH PO (12:12)
== END 2025-07-06 12:04 | disposition home or self-care (01) | DRG 392 ==
LOC: ER 11:19 → SURG 23:18
PROVIDERS: General Practice; Internal Medicine Geriatric Medicine; Internal Medicine Infectious Disease; Surgery; ADMIT Surgery; ATTEND Surgery
PROC: BW21ZZZ Computerized Tomography (CT Scan) of Abdomen and Pelvis (ICD-10-PCS; principal; 2025-06-28)
PROC: B246ZZZ Ultrasonography of Right and Left Heart (ICD-10-PCS; 2025-06-29)
PROC: 02HV33Z Insertion of Infusion Device into Superior Vena Cava, Percutaneous Approach (ICD-10-PCS; 2025-06-29)
PROC: 4A12X4Z Monitoring of Cardiac Electrical Activity, External Approach (ICD-10-PCS; 2025-06-29)
PROC: BW21ZZZ Computerized Tomography (CT Scan) of Abdomen and Pelvis (ICD-10-PCS; 2025-07-04)
DX: K57.32 Diverticulitis of large intestine without perforation or abscess without bleeding (principal); I50.30 Unspecified diastolic (congestive) heart failure; I47.10 Supraventricular tachycardia, unspecified; K63.89 Other specified diseases of intestine; I48.91 Unspecified atrial fibrillation; I11.0 Hypertensive heart disease with heart failure; E11.9 Type 2 diabetes mellitus without complications; E03.8 Other specified hypothyroidism; E78.49 Other hyperlipidemia; G47.33 Obstructive sleep apnea (adult) (pediatric); E83.39 Other disorders of phosphorus metabolism; Z79.4 Long term (current) use of insulin

== ENCOUNTER 2025-08-05 15:04 | Outpatient (CLI) | payer OTHER ==
[~2025-08-05 15:04] MED LIST changes: +ABANEU-SL TABL1 EACH SL; +FUSION PLUS CA1 EACH PO; +LEVOTHYROXINE112 MCG; +PREDNISOLO15 MG/5 M1
== END 2025-08-05 15:20 | disposition home or self-care (01) ==
LOC: TOM 15:04
PROVIDERS: ATTEND Surgery
DX: K59.9 Functional intestinal disorder, unspecified (principal); K57.30 Diverticulosis of large intestine without perforation or abscess without bleeding; R19.7 Diarrhea, unspecified; C7A.022 Malignant carcinoid tumor of the ascending colon
CPT/HCPCS: 74177; Q9965